=== PATIENT | female | born 1985 | race Caucasian/White ===

== ENCOUNTER 2025-04-15 15:20 | Outpatient (CLI) | payer OTHER, SELFPAY | END 2025-04-15 15:21 | disposition home or self-care (01) | PROVIDERS: Visit Provider Family Medicine | DX: E78.5 Hyperlipidemia, unspecified (principal); I10 Essential (primary) hypertension | CPT/HCPCS: 80053; 80061 ==

== ENCOUNTER 2025-05-27 09:32 | Outpatient (CLI) | payer OTHER, SELFPAY ==
--- NOTE | 2025-06-17 12:17 | W.PM.SLEEP ---
Sleep Study Details Details Interpreting Provider: Barbara Date of Sleep Study: 05/27/25 Sleep Study Details: STUDY TYPE:? Home unattended ? BMI:? 29.75 ORDERING PROVIDER:? Karen INDICATION:? Concern for sleep apnea ? SLEEP SUMMARY:? 3 and 6.5 minutes monitored RESPIRATORY SUMMARY:? AHI 11.2 per rule 1A, 7.8 per CMS guideline Low oxygen 79 19.3% of study oxygen less than 90% Snoring 100% PERIODIC LIMB MOVEMENTS OF SLEEP:? Not recorded CARDIAC:? Range 58-101, mean 74.4 beats per minute IMPRESSION:? Mild obstructive sleep apnea. There was more desaturation than would be expected for this level of apnea. RECOMMENDATION: Treatment options include CPAP, dental appliance and/or airway expansion surgery. Once effective therapy is established a repeat overnight oximetry should be performed.
== END 2025-05-27 09:33 | disposition home or self-care (01) ==
LOC: SLEEP 09:34
PROVIDERS: PCP Family Medicine; Visit Provider Family Medicine
DX: G47.33 Obstructive sleep apnea (adult) (pediatric) (principal)
CPT/HCPCS: 95806

== ENCOUNTER 2025-07-08 11:43 | Outpatient (CLI) | payer OTHER, SELFPAY | END 2025-07-08 11:44 | disposition home or self-care (01) | LOC: NFLDREF 11:44 | PROVIDERS: PCP Family Medicine; Visit Provider Family Medicine | DX: R61 Generalized hyperhidrosis (principal) | CPT/HCPCS: 84443 ==